=== PATIENT | male | born 1935 | race Caucasian/White ===

== ENCOUNTER → 2016-11-08 | Outpatient (CLI) | payer OTHER | LOC: SBRMNEURO 21:00 | PROVIDERS: ATTEND Psychiatry & Neurology Sleep Medicine | DX: G47.33 Obstructive sleep apnea (adult) (pediatric) (principal); G47.61 Periodic limb movement disorder ==

== ENCOUNTER 2016-11-29 16:52 | Inpatient (IN) | payer OTHER ==
--- NOTE | 2016-11-29 16:52 | EDPHY ---
H & P Time Seen by Provider: 11/29/16 16:52 HPI/ROS: CHIEF COMPLAINT: Weakness, and heart block HISTORY OF PRESENT ILLNESS: This 81-year-old man has a history of hypertension. He had a DVT 8 years ago. If he on losartan and Norvasc for his hypertension. This morning he felt a little bit weak at 7:00 a.m. when used is hand-held pulse oximetry and found that his pulse was in the 30s. He went to go skiing at [employer] and did 1 run with his instructor/guide but felt really fatigued even just walking across the parking lot with his skis. He went to the jet ski mechanic and was found to have bradycardia and was eventually transported to the emergency department by paramedics. On arrival he does not have any complaints. REVIEW OF SYSTEMS: Eye: no change in vision ENT: no sore throat Cardiac: no chest pain or syncope Pulmonary: no cough or SOB Abdomen: no vomiting, diarrhea, abdominal pain Musculoskeletal: no back pain Skin: no rash Neuro: no headache Constitutional: no fever : no urinary symptoms A comprehensive 10 point review of systems is otherwise negative aside from elements mentioned in the history of present illness. PAST MEDICAL HISTORY: DVT 8 years ago, hypertension, prostate cancer and hyperlipidemia. Prostatectomy and tonsillectomy. Social history: Former smoker General Appearance: Alert and conversant, cooperative. Eyes: No scleral icterus. ENT, Mouth: Normal mucous membranes. Respiratory: Normal respiratory effort, breath sounds equal, lungs are clear to auscultation. Cardiovascular: Regular rate and rhythm. Bradycardic Gastrointestinal: Abdomen is soft and non tender. Neurological: Alert and oriented x3. Normally conversant. Face symmetric, normal movement and sensation in all extremities. Skin: Warm and dry, no rashes. Musculoskeletal: No peripheral edema and no joint swelling. Psychiatric: Weakness, and heart block Emergency Department course/MDM: Patient is in second-degree heart block with 2-1 conduction. Admission with cardiology consultation for symptomatic bradycardia. He does not have ischemic symptoms. Troponin is ordered. Primary care is Bj Fernandez. [facility], telemetry. Dr. De La Cruz will consult. Constitutional: Initial Vital Signs Heart Rate 39 L 11/29/16 17:00 Respiratory Rate 18 11/29/16 17:00 Blood Pressure 169/61 H 11/29/16 17:00 O2 Sat (%) 93 11/29/16 17:00 O2 Delivery Mode Room Air Allergies/Adverse Reactions: No Known Allergies Allergy (Unverified 11/29/16 18:02) Home Medications: Medication Instructions Recorded Amlodipine Besylate 11/29/16 Aspirin 81mg (*) 11/29/16 Losartan Potassium 11/29/16 Ranitidine HCl 11/29/16 Medical Decision Making - Diagnostics EKG Interpretation: 12-lead EKG interpreted by me; official reading is in trace master. My interpretation is 2nd degree heart block rate 38 and late anterior RS transition. Imaging: Chest x-ray negative Differential Diagnosis: Differential for bradycardia considered including but not limited to heart block second-degree, heart block third-degree, sinus bradycardia, medication side effect Consult/Admit Bed Type: [facility] 4278, Dr. Hernandez [id number] - Data Points Laboratory Results: Laboratory Results 11/29/16 17:50 11/29/16 17:50 11/29/16 11/29/16 17:50 17:50 WBC 8.11 10^3/uL 10^3/uL (3.80-9.50) RBC 4.53 10^6/uL 10^6/uL (4.40-6.38) Hgb 15.2 g/dL g/dL (13.7-17.5) Hct 45.1 % % (40.0-51.0) MCV 99.6 fL fL (81.5-99.8) MCH 33.6 pg pg (27.9-34.1) MCHC 33.7 g/dL g/dL (32.4-36.7) RDW 14.6 % % (11.5-15.2) Plt Count 215 10^3/uL 10^3/uL (150-400) MPV 8.8 fL fL (8.7-11.7) Neut % (Auto) 62.1 % % (39.3-74.2) Lymph % (Auto) 19.5 % % (15.0-45.0) Power % (Auto) 13.8 % H % (4.5-13.0) Eos % (Auto) 3.3 % % (0.6-7.6) Baso % (Auto) 0.9 % % (0.3-1.7) Nucleat RBC Rel Count 0.0 % % (0.0-0.2) Absolute Neuts (auto) 5.04 10^3/uL 10^3/uL (1.70-6.50) Absolute Lymphs (auto) 1.58 10^3/uL 10^3/uL (1.00-3.00) Absolute Monos (auto) 1.12 10^3/uL H 10^3/uL (0.30-0.80) Absolute Eos (auto) 0.27 10^3/uL 10^3/uL (0.03-0.40) Absolute Basos (auto) 0.07 10^3/uL 10^3/uL (0.02-0.10) Absolute Nucleated RBC 0.00 10^3/uL 10^3/uL (0-0.01) Immature Gran % 0.4 % % (0.0-1.1) Immature Gran # 0.03 10^3/uL 10^3/uL (0.00-0.10) Sodium 145 mEq/L H mEq/L (134-144) Potassium 4.9 mEq/L mEq/L (3.5-5.2) Chloride 108 mEq/L mEq/L (97-110) Carbon Dioxide 26 mEq/l mEq/l (22-31) Anion Gap 11 mEq/L mEq/L (8-16) BUN 23 mg/dL mg/dL (7-23) Creatinine 0.9 mg/dL mg/dL (0.7-1.3) Estimated GFR > 60 Glucose 116 mg/dL H mg/dL (70-100) Calcium 9.6 mg/dL mg/dL (8.5-10.4) Troponin I < 0.012 ng/mL ng/mL (0-0.034) Departure - Departure Disposition: [facility] Inpatient Acute Clinical Impression: Second degree heart block Condition: Good
--- NOTE | 2016-11-29 17:07 | CPEKG ---
Heart Rate: 38 RR Interval: 1579 P-R Interval: 224 QRSD Interval: 136 QT Interval: 672 QTC Interval: 535 P [place]: 62 QRS [place]: 87 T Wave [place]: 69 EKG Severity - ABNORMAL ECG - EKG Impression: SECOND DEGREE AV BLOCK EKG Impression: RIGHT BUNDLE BRANCH BLOCK EKG Impression: CONSIDER ANTEROSEPTAL INFARCT Electronically Signed By: Ortiz Ott 29-Nov-2016 17:10:33
[2016-11-29 18:07] LABS: % IMMATURE GRANULYOCYTES 0.4 % (0.0-1.1); ABSOLUTE IMMATURE GRANULOCYTES 0.03 10^3/uL (0.00-0.10); ADD DIFF? NO; ADD MORPH? NO; ADD SCAN? NO; ATYPICAL LYMPHOCYTE FLAG 0 (0-99); FRAGMENT RBC FLAG 0 (0-99); HEMATOCRIT 45.1 % (40.0-51.0); HEMOGLOBIN 15.2 g/dL (13.7-17.5); LEFT SHIFT FLG 0 (0-99); LIPEMIA HEMOLYSIS FLAG 80 (0-99); MEAN CELL HEMOGLOBIN 33.6 pg (27.9-34.1); MEAN CELL HEMOGLOBIN CONCENTR. 33.7 g/dL (32.4-36.7); MEAN CELL VOLUME 99.6 fL (81.5-99.8); MEAN PLATELET VOLUME 8.8 fL (8.7-11.7); PLATELET CLUMPS FLAG 10 (0-99); PLATELET COUNT 215 10^3/uL (150-400); RED BLOOD CELL COUNT 4.53 10^6/uL (4.40-6.38); RED CELL DISTRIBUTION WIDTH 14.6 % (11.5-15.2)
[2016-11-29 18:31] LABS: ANION GAP 11 mEq/L (8-16); CALCIUM 9.6 mg/dL (8.5-10.4); CARBON DIOXIDE 26 mEq/l (22-31); CHLORIDE 108 mEq/L (97-110); CREATININE 0.9 mg/dL (0.7-1.3); GLOMERULAR FILTRATION RATE > 60; GLUCOSE 116 mg/dL (70-100); POTASSIUM 4.9 mEq/L (3.5-5.2); SODIUM 145 mEq/L (134-144)
[2016-11-29 18:42] LABS: TROPONIN I < 0.012 ng/mL (0-0.034)
[2016-11-29] MEDS ORDERED: ONDANSETRON 4 MG/2 ML VIAL IVP PRN (20:46)
[2016-11-29] MEDS ORDERED: ONDANSETRON DISINTEGRATING 4 MG TAB PO PRN (20:46)
--- NOTE | 2016-11-29 20:57 | PDGENHP ---
History and Physical - Chief Complaint weakness, fatigue - History of Present Illness 81 yo male with history of hypertension and GERD presents to ED with fatigue and bradycardia. He recently had his Amlodipine increased from 5 mg daily to 10 mg daily. Today, while skiing at [place], he did one run and felt very tired. He was wearing a heart rate monitor and noted his heart rate to be in the 30's. He was seen at a clinic in the [facility] and was sent down to [facility] ED for further evaluation. He denies CP or SOB. He denies HAMLIN or vision changes. His fatigue has been present for nearly 2 months. In the ED, his EKG showed a 2nd degree heart block. He is admitted for further evaluation. History Information - Allergies/Home Medication List Allergies/Adverse Reactions: No Known Allergies Allergy (Unverified 11/29/16 18:02) Home Medications: Amlodipine Besylate 10 mg PO DAILY 11/29/16 [Last Taken 11/29/16] Aspirin EC [Aspirin EC 81 mg (*)] 81 mg PO DAILY 11/29/16 [Last Taken 11/29/16] Cholecalciferol Vit D3 [Vitamin D3 (*)] 1,000 units PO DAILY 11/29/16 [Last Taken Unknown] Herbals/Supplements -Info Only 1 ea PO DAILY 11/29/16 [Last Taken Unknown] Losartan Potassium [Cozaar] 100 mg PO DAILY 11/29/16 [Last Taken Unknown] Ranitidine HCl 150 mg PO DAILY 11/29/16 [Last Taken 11/29/16] Zolpidem Tartrate 10 mg PO HS PRN 11/29/16 [Last Taken 11/01/16] I have personally reviewed and updated: family history, medical history, social history, surgical history - Past Medical History DVT, GERD, hypertension - Surgical History Additional surgical history: prostatectomy, tonsillectomy - Family History Positive for: non-pertinent - Social History Smoking Status: Former smoker Alcohol Use: Other (most days has 2-3 drinks. denies h/o withdrawal symptoms) Drug Use: None Additional social history: , lives up [facility]. He was in the [place]. Very active. Review of Systems ROS: 10pt was reviewed & negative except for what was stated in HPI & below Physical Exam Temp Pulse Resp BP Pulse Ox 36.8 C 45 L 18 150/113 H 93 11/29/16 17:10 11/29/16 18:00 11/29/16 18:00 11/29/16 18:00 11/29/16 18:00 Constitutional: no apparent distress Eyes: PERRL Ears, Nose, Mouth, Throat: moist mucous membranes Cardiovascular: no murmur, rub, or gallop, bradycardia Respiratory: no respiratory distress, clear to auscultation Gastrointestinal: normoactive bowel sounds, soft, non-tender abdomen Skin: warm Musculoskeletal: full muscle strength Neurologic: AAOx3 Psychiatric: interacting appropriately Lab Data & Imaging Review 11/29/16 17:50 11/29/16 17:50 WBC 8.11 10^3/uL (3.80-9.50) 11/29/16 17:50 RBC 4.53 10^6/uL (4.40-6.38) 11/29/16 17:50 Hgb 15.2 g/dL (13.7-17.5) 11/29/16 17:50 Hct 45.1 % (40.0-51.0) 11/29/16 17:50 MCV 99.6 fL (81.5-99.8) 11/29/16 17:50 MCH 33.6 pg (27.9-34.1) 11/29/16 17:50 MCHC 33.7 g/dL (32.4-36.7) 11/29/16 17:50 RDW 14.6 % (11.5-15.2) 11/29/16 17:50 Plt Count 215 10^3/uL (150-400) 11/29/16 17:50 MPV 8.8 fL (8.7-11.7) 11/29/16 17:50 Neut % (Auto) 62.1 % (39.3-74.2) 11/29/16 17:50 Lymph % (Auto) 19.5 % (15.0-45.0) 11/29/16 17:50 [place] % (Auto) 13.8 % (4.5-13.0) H 11/29/16 17:50 Eos % (Auto) 3.3 % (0.6-7.6) 11/29/16 17:50 Baso % (Auto) 0.9 % (0.3-1.7) 11/29/16 17:50 Nucleat RBC Rel Count 0.0 % (0.0-0.2) 11/29/16 17:50 Absolute Neuts (auto) 5.04 10^3/uL (1.70-6.50) 11/29/16 17:50 Absolute Lymphs (auto) 1.58 10^3/uL (1.00-3.00) 11/29/16 17:50 Absolute Monos (auto) 1.12 10^3/uL (0.30-0.80) H 11/29/16 17:50 Absolute Eos (auto) 0.27 10^3/uL (0.03-0.40) 11/29/16 17:50 Absolute Basos (auto) 0.07 10^3/uL (0.02-0.10) 11/29/16 17:50 Absolute Nucleated RBC 0.00 10^3/uL (0-0.01) 11/29/16 17:50 Immature Gran % 0.4 % (0.0-1.1) 11/29/16 17:50 Immature Gran # 0.03 10^3/uL (0.00-0.10) 11/29/16 17:50 Sodium 145 mEq/L (134-144) H 11/29/16 17:50 Potassium 4.9 mEq/L (3.5-5.2) 11/29/16 17:50 Chloride 108 mEq/L (97-110) 11/29/16 17:50 Carbon Dioxide 26 mEq/l (22-31) 11/29/16 17:50 Anion Gap 11 mEq/L (8-16) 11/29/16 17:50 BUN 23 mg/dL (7-23) 11/29/16 17:50 Creatinine 0.9 mg/dL (0.7-1.3) 11/29/16 17:50 Estimated GFR > 60 11/29/16 17:50 Glucose 116 mg/dL (70-100) H 11/29/16 17:50 Calcium 9.6 mg/dL (8.5-10.4) 11/29/16 17:50 Troponin I < 0.012 ng/mL (0-0.034) 11/29/16 17:50 Assessment & Plan Assessment: Second degree heart block (Acute) - EKG consistent with a 2:1 conduction versus Mobitz type 2. No CP, SOB or hypotension. Case was discussed with Cardiology. Norvasc will be held. He'll be monitored on telemetry. Pacer pads will be placed. If his heart block doesn't resolve in the absence of Norvasc, he may need a pacemaker. Cards to see in am. Will make NPO at midnight just in case it is decided to proceed with pacer. Hypertension - continue Losartan. As above, hold CCB due to bradycardia. GERD - cont PPI DVT PPLX - SCD's. Defer Lovenox in the event he requires intervention. Full code Dispo - Obs status. May require changing to inpatient should he require an additional day for
[2016-11-29] MEDS ORDERED: ZOLPIDEM TARTRATE 5 MG TAB PO PRN (22:01)
[2016-11-30] MEDS: LOSARTAN POTASSIUM 50 MG TAB PO SCH (09:52)
[2016-11-30] MEDS: FAMOTIDINE 20 MG TAB PO SCH (09:53)
[2016-11-30] MEDS: ASPIRIN EC 81 MG TAB PO SCH (09:55)
--- NOTE | 2016-11-30 11:03 | GCON ---
[f rep st] CONSULTATION CARDIAC CONSULTATION DATE OF CONSULTATION: 11/30/2016 CHIEF COMPLAINT: Increasing shortness of breath, lack of energy while skiing. EKG shows 2-1 heart block. HISTORY OF PRESENT ILLNESS: This is a very pleasant 81-year-old gentleman who is a long-time skier, who was [place] the mountains yesterday and just did not have his energy. He noted that his heart rate was low. He was seen at the clinic and noted in 2-1 heart block. He was transferred to [facility] where he remained in 2-1 heart block. He denies any palpitations or syncope. This is an acute event. He has been on chronic amlodipine and losartan for hypertension. No new changes or other issues were ongoing. Apparently 10 years ago he had a heart catheterization for unknown reasons which he reports to me as normal. He denies any ACS symptomatology, other issues or CHF. Overnight he has had normal sinus rhythm, some second-degree heart block and some conducted beats or PACs. His Norvasc was discontinued. Today he feels well. He is active. I had a long discussion with him about his findings. At this point, I recommend cardiac pacemaker because of his overall activity and the finding as noted above. He will be seen later today by Dr. Anders, the EP physician for his opinion as well. He has been made n.p.o. for tentative pacemaker placement today. LABORATORY DATA: His white count is 8, his hemoglobin is 15, his potassium 4.9 , creatinine 0.9. Troponins are normal. PAST MEDICAL HISTORY: GERD and hypertension. SOCIAL HISTORY: He lives in [place] and spends a lot of time in the [facility] and [place], very active skiing, nonsmoker. PHYSICAL EXAMINATION: VITAL SIGNS: Blood pressure is 138/56, heart rate in sinus rate in the 80s with 2-1 heart block. GENERAL: A middle-aged elderly male in no acute distress. Alert and oriented x3. MOUTH: Oropharynx is clear. NECK: Supple. BACK: CV is as above. LUNGS: Clear to auscultation. CARDIOVASCULAR: Regular rate and rhythm without murmur, gallop, or rub. ABDOMEN: Soft, nontender. Normal bowel sounds. No hepatosplenomegaly. MUSCULOSKELETAL: No sinus , clubbing, or edema. ASSESSMENT: Bradycardia, symptomatic with 2-1 second-degree heart block. I recommend cardiac permanent pacemaker. This was discussed with the patient. His Norvasc was discontinued. After hearing the procedure risks, benefits, and complication he agrees. I will have Dr. Boni Anders, my EP partner, also assess and advise with a 2nd opinion. He denies syncope or ACS symptomatology. His questions were answered. He does not appear to be actively infected. PLAN: Await Dr. Anders's 2nd opinion. Otherwise continue current treatment and hold Norvasc. After pacemaker could restart calcium channel or beta-mejia as needed as well. /[id number]/MODL MTDD
[2016-11-30] MEDS ORDERED: DIAZEPAM 5 MG TAB PO ONE (12:08)
[2016-11-30] MEDS ORDERED: BACITRACIN IRRIGATION/NS 50,000 UNITS/1,000 ML BTL IRR ONE (12:08)
[2016-11-30] MEDS ORDERED: diphenhydrAMINE 25 MG CAP PO ONE (12:08)
[2016-11-30] MEDS ORDERED: NS 1,000 ML IV SCH (12:15)
[2016-11-30 12:16] LABS: INR 1.08 (0.83-1.16); PROTIME(PATIENT) 13.9 SEC (12.0-15.0)
--- NOTE | 2016-11-30 13:08 | HOSPPROG ---
Hospitalist Progress Note Assessment/Plan: DIAGNOSIS: # symptomatic bradycardia # type 2 second degree heart block # highly active lifestyle # hx of prostate cancer appears cured PLANS: -for placement of pacemaker this afternoon w Dr Anders -I reviewed the procedure, potential complications, f/u monitoring, activity restictions post op, etc SUBJECTIVE: still fatigued, no chest pain or palpitations OBJECTIVE Vitals reviewed:HR in 40s, other vitals ok teletypesetter monitor: bradycardia w 2nd degr block Exam: alert oriented skin warm dry color ok resps not labored lungs clear BSs heart regular abd soft nondistended nontender, bowel sounds present limbs warm, no edema iv site ok Objective: Vital Signs Temp Pulse Resp BP Pulse Ox 36.6 C 37 L 16 129/60 H 92 11/30/16 12:21 11/30/16 12:21 11/30/16 12:21 11/30/16 12:21 11/30/16 12:21 PT 13.9 SEC (12.0-15.0) 11/30/16 11:55 INR 1.08 (0.83-1.16) 11/30/16 11:55 ICD10 Worksheet Patient Problems: Problems Problem Status Onset Second degree heart block Acute
[2016-11-30] MEDS ORDERED: ceFAZolin 2 GM in D5W 100 ML IV ONE (15:00)
[2016-11-30] MEDS ORDERED: MIDAZOLAM 2 MG/2 ML VIAL ONE (16:46)
[2016-11-30] MEDS ORDERED: fentaNYL 100 MCG/2 ML INJ ONE ×2 (16:46→18:48)
[2016-11-30] MEDS ORDERED: LIDOCAINE 1% 30 ML SDV ONE ×2 (16:46→18:57)
[2016-11-30] MEDS ORDERED: BUPIVACAINE 0.5% 30 ML SDV ONE ×2 (16:46→18:57)
[2016-11-30] MEDS ORDERED: IOPAMIDOL (ISOVUE-300) 50 ML VIAL IV ONE (18:38)
--- NOTE | 2016-11-30 20:16 | CPEKG ---
Heart Rate: 92 RR Interval: 652 QRSD Interval: 234 QT Interval: 383 QTC Interval: 474 QRS [place]: 87 T Wave [place]: -65 EKG Severity - ABNORMAL ECG - EKG Impression: AV PACED RHYTHM Electronically Signed By: Boni Anders 01-Dec-2016 09:03:17
[2016-12-01] MEDS: ACETAMINOPHEN 325 MG TAB PO PRN ×2 (04:46→09:01)
[2016-12-01 04:53] LABS: % IMMATURE GRANULYOCYTES 0.3 % (0.0-1.1); ABSOLUTE IMMATURE GRANULOCYTES 0.04 10^3/uL (0.00-0.10); ADD DIFF? NO; ADD MORPH? NO; ADD SCAN? NO; ATYPICAL LYMPHOCYTE FLAG 0 (0-99); FRAGMENT RBC FLAG 0 (0-99); HEMATOCRIT 43.5 % (40.0-51.0); HEMOGLOBIN 14.7 g/dL (13.7-17.5); LEFT SHIFT FLG 0 (0-99); LIPEMIA HEMOLYSIS FLAG 90 (0-99); MEAN CELL HEMOGLOBIN 33.6 pg (27.9-34.1); MEAN CELL HEMOGLOBIN CONCENTR. 33.8 g/dL (32.4-36.7); MEAN CELL VOLUME 99.3 fL (81.5-99.8); MEAN PLATELET VOLUME 8.7 fL (8.7-11.7); PLATELET CLUMPS FLAG 0 (0-99); PLATELET COUNT 188 10^3/uL (150-400); RED BLOOD CELL COUNT 4.38 10^6/uL (4.40-6.38); RED CELL DISTRIBUTION WIDTH 14.4 % (11.5-15.2)
[2016-12-01 05:13] LABS: ANION GAP 6 mEq/L (8-16); CALCIUM 8.9 mg/dL (8.5-10.4); CARBON DIOXIDE 26 mEq/l (22-31); CHLORIDE 107 mEq/L (97-110); CREATININE 0.9 mg/dL (0.7-1.3); GLOMERULAR FILTRATION RATE > 60; GLUCOSE 116 mg/dL (70-100); POTASSIUM 4.6 mEq/L (3.5-5.2); SODIUM 139 mEq/L (134-144)
[2016-12-01] MEDS: ASPIRIN EC 81 MG TAB PO SCH (09:01)
[2016-12-01] MEDS: FAMOTIDINE 20 MG TAB PO SCH (09:01)
[2016-12-01] MEDS: LOSARTAN POTASSIUM 50 MG TAB PO SCH (09:01)
--- NOTE | 2016-12-01 09:14 | CPEKG ---
Heart Rate: 81 RR Interval: 741 P-R Interval: 164 QRSD Interval: 172 QT Interval: 456 QTC Interval: 530 P [place]: 79 QRS [place]: -85 T Wave [place]: 90 EKG Severity - ABNORMAL ECG - EKG Impression: SINUS RHYTHM WITH VPACED RHYTHM Electronically Signed By: Boni Anders 01-Dec-2016 16:13:09
[2016-12-01 09:15] VITALS: BP 146/82; PULSE 85; RESP 22; TEMP 98.1; O2SAT 92
--- NOTE | 2016-12-01 09:17 | PDCARPN ---
Cardiology Progress Note Chief Complaint: Patient report tenderness at incision site Assessment/Plan: Assessment: 81-year-old male with history of HTN, noting to have a lack of energy. Noted to have slow heart rate, found to be in Mobitz type 2, 2-1 heart block. Transfer to [facility] on 11/30. Denies of any chest pain pressure shortness breath. [employer] PPM placed yesterday, dual chamber. Overnight telemetry showing patient AV paced, rare PVC. Patient denies of any chest pain or pressure. Does report pain at incisional site, mildly swollen, but no redness, swelling or drainage. [employer] rep here for device check, showing functioning within normal limits. Patient has undergone chest x-ray this morning, results are still pending. Vital signs have been stable. He has been walking unit without symptoms lightheadedness or near-syncope. Plan: Mobitz second-degree heart type 2: PPM implantation done last evening, device check showing functioning within normal limits. Patient reports no further episodes of fatigue or lightheadedness. Walking the unit without symptoms of near-syncope. Chest x-ray pending, if it looks fine (no signs of pneumothorax) , patient may be discharged home. I have gone over post pacemaker discharge instructions with the patient, he is scheduled for a one-week follow-up wound and device check in our office, and a [address] Anders. Dressing change done. HTN: Patient cont on home dose of losartan, his home dose of amlodipine was D/C on addmission due to HB. Now with PPM, BP up, restart on home dose of amlodipine. Patient and his have been told that if any problems or concerns come up post discharge, they are to call our office or return to the hospital. 12/01/16 09:17 Subjective: Denies any Cp, SOB, lightheadness, or palpitation Reviewed/Discussed With: family (Patient's ), hospitalist (Dr. Ace), other (Dr Anders) Objective: Vital Signs (8 Hrs) Temp Pulse Resp BP Pulse Ox 12/01/16 09:10 36.7 C 85 22 H 146/82 H 92 12/01/16 05:34 36.6 C 81 16 162/73 H 96 Intake/Output (24 Hrs) 11/30/16 12/01/16 12/02/16 05:59 05:59 05:59 Intake Total 100 Output Total 300 Balance -200 Intake: Oral (ml) 100 Output: Urine (ml) 300 Urinal 300 Other: Weight 88.45 kg Intake Quantity Yes Yes Sufficient Result Diagrams: 12/01/16 04:33 12/01/16 04:33 - Physical Exam Constitutional: WDWN, healthy appearing Ears, Nose, Mouth, Throat: moist mucous membranes Cardiovascular: regular rate and rhythm, no murmurs, no rubs, no gallops, pulses symmetric bilat, No carotid bruit Peripheral Pulses: 2+: carotid (R), carotid (L), dorsalis-pedis (R), dorsalis- pedis (L) Respiratory: clear to auscultate bilat, no crackles, no wheezes Gastrointestinal: normoactive bowel sounds, no tenderness Skin: no rashes, no edema, other (Pacemaker incision, left anterior chest, intact with Steri-Strips, mildly ecchymotic, no redness, swelling, or drainage. Dressing change done.) Neurologic: AAOx3, CN II-XII grossly intact Psychiatric: cooperative, interactive, following commands ICD10 Worksheet Patient Problems: Problems Problem Status Onset Second degree heart block Acute
--- NOTE | 2016-12-01 11:13 | PDDCSUM ---
Discharge Summary Discharge Summary: DISCHARGE SUMMARY NOTE DISCHARGE DIAGNOSES: # symptomatic bradycardia # Second-degree heart block type 2 # status post successful AV pacemaker CONSULTANTS: Dr. Boni Anders PROCEDURES: Placement of 2 lead pacemaker, functioning well and without complication HOSPITAL COURSE SUMMARY: This patient presented with fatigue and dyspnea and was found to be in second- degree type 2 heart block. This persisted. There were no AV node blocking agents that he was taking at the time. He was felt to be in need of pacemaker placement. This was performed by Dr. Boni Anders on the 30 of November. Follow-up chest x-rays have shown evidence of bleeding pneumothorax or other complications in the leads are in proper placement. The device is functioning well. At this point he is up walking well has no fevers eating well has no abnormal findings on examination. His pacemaker site looks good. His stable for discharge to home. He has received appropriate instructions both verbally and written regarding care of his pacemaker. PENDING TEST RESULTS: None MEDICATION CHANGES: None FOLLOW-UP PLAN: With Dr. Anders in 1 week Greater than 35 minutes bedside and care coordination time today
--- NOTE | 2016-12-02 15:09 | EPPROC ---
Electrophysiology Procedure Note: PROCEDURE PERFORMED: * Implantation of an A/V Pacemaker * Subclavian vein angiography * Fluoroscopy INDICATION: PROCEDURE NOTE: Patient presented to the cardiac catherization laboratory in a fasting, post absorptive state. Cardiac cleaner laboratory equipment nurse administered moderate sedation. The left infraclavicular area was prepped and draped in the usual sterile fashion. Lidocaine plus bupivacaine was used for local anesthesia. Left subclavian venography was performed by injection of iodinated contrast into the left antecubital vein. This was done to assure patency of the vein and also to assess for any anatomical aberrations. Using a combination of blunt and sharp dissection and electrocautery, the dissection was carried down to the prepectoral fascia. All bleeding was controlled with electrocautery. Fluoroscopy was utilized during the entire procedure for venous access and placement of the leads. Using the usual technique, left cephalic vein was accessed but it was a small vessel and hence venogram was performed and subclavian access was obtained and a glidewire was placed. Through this initially a 9F and later a 7F sheath was passed. Placement of the guidewires into the venous system was confirmed by low -pressure blood return and also by visualizing the guidewires advancing into the inferior vena cava. A purse string suture was applied around the guidewires. An active fixation ventricular lead was advanced into the right ventricular apex and screwed in place. An active fixation atrial lead was advanced into the right atrial appendage and screwed in place. The peel away sheaths were removed. Pacing thresholds, sensing parameters and lead impedances were measured. There was no diaphragmatic stimulation at maximum output. The leads were sutured to the prepectoral fascia with 3 nonabsorbable sutures each. The pocket was created and it was flushed using antibiotic solution. It was inspected for any bleeding. The leads were attached to the pacemaker securely. The pacemaker was inserted into the pocket and secured in place with a nonabsorbable suture. Fluoroscopy was performed in M[place]ONNELL and ITALIAN planes to verify right-sided placement of the leads. Also fluoroscopy of the pacemaker pocket was performed. The pacemaker pocket was closed in 3 layers with absorbable vicryl sutures. Steristrips were placed. Appropriate dressing was applied. The patient left the cardiac catheterization laboratory in stable condition. Jermain Pacing Parameters * Pacing mode: DDDR * Lower rate: 60 * Upper tracking rate: 130 * Upper sensor rate: 130 Patient Problems: Problems Problem Status Onset Second degree heart block Acute
== END 2016-12-01 11:53 | disposition home or self-care (01) | DRG 244 ==
LOC: EDUNIT# → INTOOBSV 18:34 → F2W 21:58 → OBSVTOIN 11-30 18:05
PROVIDERS: ADMIT Hospitalist; ATTEND Internal Medicine
PROC: 02HK3JZ Insertion of Pacemaker Lead into Right Ventricle, Percutaneous Approach (ICD-10-PCS; principal; 2016-11-30)
PROC: 0JH606Z Insertion of Pacemaker, Dual Chamber into Chest Subcutaneous Tissue and Fascia, Open Approach (ICD-10-PCS; principal; 2016-11-30)
PROC: 02H63JZ Insertion of Pacemaker Lead into Right Atrium, Percutaneous Approach (ICD-10-PCS; principal; 2016-11-30)
DX: I44.1 Atrioventricular block, second degree (principal); I10 Essential (primary) hypertension; K21.9 Gastro-esophageal reflux disease without esophagitis; E78.5 Hyperlipidemia, unspecified; Z85.46 Personal history of malignant neoplasm of prostate; Z86.718 Personal history of other venous thrombosis and embolism
CPT/HCPCS: C1769; C1785; C1898; G0378; J0690; J2250; J3010; Q9967

== ENCOUNTER → 2017-09-20 | Outpatient (CLI) | payer OTHER | LOC: BMCIMAGING 14:55 | PROVIDERS: ATTEND Internal Medicine | DX: J44.9 Chronic obstructive pulmonary disease, unspecified (principal) ==

== ENCOUNTER → 2018-03-28 | Outpatient (CLI) | payer OTHER | LOC: BHFA 09:00 | PROVIDERS: ATTEND Internal Medicine Cardiovascular Disease | DX: I25.10 Atherosclerotic heart disease of native coronary artery without angina pectoris (principal) | CPT/HCPCS: 78452; 93017; A9500; J2785 ==

== ENCOUNTER 2018-03-30 07:30 | Day surgery (SDC) | payer OTHER ==
[2018-03-30] MEDS ORDERED: ASPIRIN EC 325 MG TAB PO ONE (07:33)
[2018-03-30] MEDS ORDERED: diphenhydrAMINE 25 MG CAP PO ONE (07:33)
[2018-03-30] MEDS ORDERED: FAMOTIDINE 20 MG TAB PO ONE (07:33)
[2018-03-30] MEDS ORDERED: NS 1,000 ML IV ONE (07:33)
[2018-03-30] MEDS ORDERED: DIAZEPAM 5 MG TAB PO ONE (07:33)
[2018-03-30 08:10] LABS: PLATELET COUNT 202 10^3/uL (150-400)
--- NOTE | 2018-03-30 08:11 | CPEKG ---
Heart Rate: 68 RR Interval: 882 QRSD Interval: 166 QT Interval: 468 QTC Interval: 498 QRS [place]: -82 T Wave [place]: 92 EKG Severity - ABNORMAL ECG - EKG Impression: AFIB/FLUTTER AND VENTRICULAR-PACED RHYTHM EKG Impression: ATRIAL FIBRILLATION IS NEW IN COMPARISON TO PRIOR ECG FROM NOV 2016 Electronically Signed By: Chriss Vieira 30-Mar-2018 17:15:12
[2018-03-30 08:19] LABS: PROTIME(PATIENT) 13.4 SEC (12.0-15.0)
[2018-03-30] MEDS ORDERED: LIDOCAINE 1% 300 MG/30 ML SDV ONE (09:30)
[2018-03-30] MEDS ORDERED: IOPAMIDOL (ISOVUE-370) 150 ML BTL IV ONE (09:31)
[2018-03-30] MEDS ORDERED: VERAPAMIL 5 MG/2 ML VIAL ONE (09:31)
[2018-03-30] MEDS ORDERED: MIDAZOLAM 2 MG/2 ML VIAL ONE ×2 (09:31→11:04)
[2018-03-30] MEDS ORDERED: fentaNYL 100 MCG/2 ML INJ ONE (09:31)
[2018-03-30] MEDS ORDERED: HEPARIN 10,000 UNIT/10 ML MDV (1,000 UNIT/ML) ONE (09:31)
--- NOTE | 2018-03-30 09:46 | PDPROPOC ---
Sedation Plan of Care Sedation Plan of Care: vital signs stable, mental status noted, patient educated of risks, benefits, alternatives, patient can tolerate sedation ASA Classification: ASA 3 Planned drugs: fentanyl, midazolam Mallampati Score: Class 2 Mallampati Reference Image: Patient passed 3-3-2 rule?: Yes
--- NOTE | 2018-03-30 09:59 | PDGENHP ---
History & Physical History of Present Illness: 82 year old with a fib, shortness of breath at NYHA class III has chronic DVT and PE. He has extensive atherosclerosis. Nuclear is considered high risk because of reduced EF and large zone of questionable infarct given RV pacing. Pertinent Past, Social, Family History: Please see H and P patient is a [place] resident but also has a residence in [place]. Much of his work up was done at [facility] in [place]. Relevant Physical Exam: regular rhythm a fib underlying simona's test normal on right. chronically anticoagulated for DVT and PE. skin warm and dry. alert oriented X 3. Cardiorespiratory Assessment: See the above notes...
--- NOTE | 2018-03-30 11:06 | PDDXCAT ---
Diagnostic Cath Note - . Date: 03/30/18 Civil Engineer Helper: Gabriela Indication: High-risk criteria on noninvasive testing (choose option below) High-risk criteria on non-invasive testing: stress-induced moderate-size multiple perfusion defects - Procedure Access: right wrist Procedure: left heart catheterization, coronary angiography, left ventriculogram - Materials Left Heart Cath size: 5F Left Heart Cath materials: standard multipack (JL4, JR4, pigtail), other (AL1) - Findings-Left Heart Catheterization LM: The LM is 5mm in size and bifurcates into an LAD and circumflex system. It is free of flow limiting disease, dissection, or thrombus. There is ostial narrowing of the 2.75 mm vessel of 30%. Significant calcification and luminal irregularity consistent with atherosclerosis. LAD: The LAD 2.75 mm in size. There is ostial narrowing of 30%. Significant calcification and luminal irregularity consistent with atherosclerosis is present. There is complex atheroma involving the LAD diagonal bifurcation with a 40% stenosis of the diagonal vessel. After the diagonal takeoff the LAD is diffusely diseased and relatively small. No flow limiting obstruction is identified and there is no narrowing that would benefit from stenting. LCX: The LCX is 3 mm in size with an ostial 30% narrowing. It gives rise to two small proximal obtuse marginal branches with two larger PLV branches distally. Both of which have 40% luminal narrowing. No flow limiting obstruction, dissection, or thrombus is noted. RCA: The RCA is 2.5 mm in size. There are 2 eccentric lesions in the RCA proper. A 30% proximal to the RV branch takeoff and a 40% lesion just distal to that same branch. ALEK III flow. EDP: 16mmHg LVEF: The EF is 40% Wall motion: The EF is 40% with distal inferior wall and anterolateral wall hypokinesis. The basal anterior wall is hypercontractile. There appears to be paradoxical motion consistent with chronic RV pacing. There is evidence of mild MR on pressurized injection. The aortic valve is calcific and there was a 15mm gradient upon pullback across the aortic valve consistent with mild aortic stenosis. No neelima aneurysm or dissection was identified. Complications: NONE. Estimated blood loss: <50ml Closure method: TR Band Assessment: 1. 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 No flow limiting obstruction that would appear to benefit from revascularization. 2. Mild aortic stenosis. 3. 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 The patient could be considered for an upgrade to a biventricular pacemaker. On angiography the coronary sinus was noted to be large and robust. Plan: The patient has non-flow limiting coronary disease that should be treated medically to achieve a non-HDL Cholesterol of less than 100 mg/dL and anti platelet therapy with ASA is also recommended specifically a dose of 162 mg per day. His BP also needs to be controlled for a goal systolic pressure of less than 130 mmHg. Annual echocardiogram every 2-3 years to follow the severity of his aortic stenosis. I would like the patient to follow up with Dr. Anders to consider biventricular pacer upgrade due to decreased EF. Intervention: NONE. Patient Problems: Problems Problem Status Onset Second degree heart block Acute
[2018-03-30] MEDS ORDERED: ONDANSETRON 4 MG/2 ML VIAL IVP PRN (11:34)
[2018-03-30] MEDS ORDERED: NITROGLYCERIN 0.4 MG BTL SL PRN (11:34)
[2018-03-30] MEDS ORDERED: ATROPINE SULFATE 1 MG/10 ML SYR IVP PRN (11:34)
[2018-03-30] MEDS ORDERED: OXYCODONE/APAP 5/325 TAB PO PRN (11:34)
[2018-03-30] MEDS ORDERED: HYDROCODONE/APAP 5/325 TAB PO PRN (11:34)
--- NOTE | 2018-03-30 16:05 | CPEKG ---
Heart Rate: 83 RR Interval: 723 P-R Interval: 164 QRSD Interval: 76 QT Interval: 408 QTC Interval: 480 P [place]: 46 QRS [place]: 14 T Wave [place]: 16 EKG Severity - BORDERLINE ECG - EKG Impression: SINUS RHYTHM EKG Impression: BORDERLINE PROLONGED QT INTERVAL EKG Impression: SINUS RHYTHM IS NEW IN COMPARISON TO PRIOR ECG WITH ATRIAL FIB AND VENTRICULAR EKG Impression: PACING Electronically Signed By: Chriss Vieira 30-Mar-2018 17:15:48
== END 2018-03-30 15:50 | disposition home or self-care (01) ==
LOC: FCATH 07:30
PROVIDERS: ATTEND Internal Medicine Cardiovascular Disease
PROC: B2111ZZ Fluoroscopy of Multiple Coronary Arteries using Low Osmolar Contrast (ICD-10-PCS; principal; 2018-03-30)
PROC: 4A023N7 Measurement of Cardiac Sampling and Pressure, Left Heart, Percutaneous Approach (ICD-10-PCS; principal; 2018-03-30)
PROC: B2151ZZ Fluoroscopy of Left Heart using Low Osmolar Contrast (ICD-10-PCS; principal; 2018-03-30)
DX: I25.10 Atherosclerotic heart disease of native coronary artery without angina pectoris (principal); I48.91 Unspecified atrial fibrillation; I42.9 Cardiomyopathy, unspecified; J44.9 Chronic obstructive pulmonary disease, unspecified; I10 Essential (primary) hypertension; K21.9 Gastro-esophageal reflux disease without esophagitis; G47.33 Obstructive sleep apnea (adult) (pediatric); Z86.711 Personal history of pulmonary embolism; Z86.718 Personal history of other venous thrombosis and embolism; Z79.01 Long term (current) use of anticoagulants; Z95.0 Presence of cardiac pacemaker; Z85.46 Personal history of malignant neoplasm of prostate
CPT/HCPCS: 93005; 93458; C1769; J1644; J2250; J3010; Q9967

== ENCOUNTER 2018-04-05 06:58 | Day surgery (SDC) | payer OTHER ==
[2018-04-05] MEDS ORDERED: BENZOCAINE UNIT DOSE SPRAY HURRICAINE MM ONE (06:59)
[2018-04-05] MEDS ORDERED: ATROPINE SULFATE 1 MG/10 ML SYR IVP ONE (06:59)
[2018-04-05] MEDS ORDERED: NS 500 ML IV ONE (06:59)
[2018-04-05] MEDS ORDERED: fentaNYL 100 MCG/2 ML INJ IVP ONE (06:59)
[2018-04-05] MEDS ORDERED: MIDAZOLAM 2 MG/2 ML VIAL IVP ONE (06:59)
--- NOTE | 2018-04-05 07:14 | CPEKG ---
Heart Rate: 70 RR Interval: 857 QRSD Interval: 166 QT Interval: 464 QTC Interval: 501 QRS [place]: -80 T Wave [place]: 95 EKG Severity - ABNORMAL ECG - EKG Impression: AFIB/FLUTTER AND VENTRICULAR-PACED RHYTHM Electronically Signed By: Ross Odonnell 05-Apr-2018 09:23:15
[2018-04-05 07:36] LABS: INR 1.17 (0.83-1.16); PROTIME(PATIENT) 15.1 SEC (12.0-15.0)
--- NOTE | 2018-04-05 08:07 | PDANEPAE ---
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) ANE Patient History - Allergies Allergies/Adverse Reactions: No Known Allergies Allergy (Verified 04/04/18 10:34) - Home Medications Home medications: home medication list seen and reviewed Home Medications: Cholecalciferol Vit D3 [Vitamin D3 (*)] 1,000 units PO DAILY 11/29/16 [Last Taken 03/30/18 06:00] Herbals/Supplements -Info Only 1 ea PO DAILY 11/29/16 [Last Taken 03/30/18 06:00 ] Losartan Potassium [Cozaar] 100 mg PO DAILY 11/29/16 [Last Taken 03/30/18 06:00] Ranitidine HCl 150 mg PO DAILY 11/29/16 [Last Taken 03/30/18 06:00] Zolpidem Tartrate 10 mg PO HS PRN 11/29/16 [Last Taken 03/29/18 21:00] amLODIPine BESYLATE [Amlodipine Besylate] 10 mg PO DAILY 11/29/16 [Last Taken 06:00] Apixaban [Eliquis] 5 mg PO BID 03/30/18 [Last Taken 03/29/18 08:00] Acetaminophen [Tylenol 325mg (*)] 650 mg PO Q4H PRN 04/04/18 [Last Taken Unknown ] Loratadine [Claritin] 10 mg PO DAILY PRN 04/04/18 [Last Taken Unknown] Rosuvastatin Calcium [Crestor 40mg (*)] 40 mg PO DAILY 04/04/18 [Last Taken Unknown] - Anes Hx Anes Hx: no prior problems - Smoking Hx Smoking Status: Former smoker ANE Labs/Vital Signs - Labs Result Diagrams: 04/05/18 07:10 - Vital Signs Height: 182.88 cm Weight: 87.09 kg ANE Physical Exam - Airway Mallampati Score: Class 2 Mouth exam: normal dental/mouth exam - Pulmonary Pulmonary: no respiratory distress - Cardiovascular Cardiovascular: regular rate and rhythym - ASA Status ASA Status: III ANE Anesthesia Plan Anesthesia Plan: MAC
[2018-04-05] MEDS ORDERED: LIDOCAINE 2% 100 MG/5 ML SYR ONE (08:35)
[2018-04-05] MEDS ORDERED: PROPOFOL 200 MG/20 ML VIAL ONE (08:35)
--- NOTE | 2018-04-05 08:48 | PDHPUP ---
History & Physical Update H&P update statement: This history and physical update is based on an assessment of the patient which was completed after admission or registration (within 24 hours), but prior to the surgery/procedure. H&P update: H&P reviewed & patient examined, no change in patient's condition since H&P completed
--- NOTE | 2018-04-05 08:49 | PDGENHP ---
History & Physical Chief Complaint: fatigue History of Present Illness: PPM, AF, CMP, EF 30% Pertinent Past, Social, Family History: Unchanged and reviewed Relevant Physical Exam: Normal Cardiorespiratory Assessment: S1S2 irregular no s3
[2018-04-05] MEDS ORDERED: NALOXONE HCL 0.4 MG/ML INJ IVP PRN (09:18)
--- NOTE | 2018-04-05 09:18 | POSTANESTH ---
Post Anesthetic Evaluation Cardiovascular Status: Similar to Pre-Op Cond Respiratory Status: Similar to Pre-op Cond. Level of Consciousness/Mental Status: Alert and Oriented Pain Control: Adequate, Prn Tx Ordered Nausea/Vomiting Control: Adequate, Prn Tx Ordered Complications Possibly Related to Anesthesia: None Noted
--- NOTE | 2018-04-05 09:21 | CPEKG ---
Heart Rate: 60 RR Interval: 1000 P-R Interval: 408 QRSD Interval: 160 QT Interval: 468 QTC Interval: 468 P [place]: -33 QRS [place]: -77 T Wave [place]: 99 EKG Severity - ABNORMAL ECG - EKG Impression: VENTRICULAR-PACED RHYTHM Electronically Signed By: Ross Odonnell 05-Apr-2018 09:23:05
--- NOTE | 2018-04-06 16:31 | PDCARD ---
Cardioversion Procedure Procedure: electrical cardioversion Indications: atrial fibrillation Consent: signed and in chart Anticoagulation: eliquis Procedural Details: Pads were placed in anterior-posterior position. Synchronized cardioversion attempt #1: 200J Results: normal sinus rhythm Conclusions: successful cardioversion Patient Problems: Problems Problem Status Onset Second degree heart block Acute
== END 2018-04-05 10:17 | disposition home or self-care (01) ==
LOC: FCATH 06:58
PROVIDERS: ATTEND Internal Medicine Cardiovascular Disease
PROC: 5A2204Z Restoration of Cardiac Rhythm, Single (ICD-10-PCS; principal; 2018-04-05)
PROC: B245ZZ4 Ultrasonography of Left Heart, Transesophageal (ICD-10-PCS; principal; 2018-04-05)
DX: I48.91 Unspecified atrial fibrillation (principal); I82.5Z9 Chronic embolism and thrombosis of unspecified deep veins of unspecified distal lower extremity; Z86.711 Personal history of pulmonary embolism; Z95.0 Presence of cardiac pacemaker; J44.9 Chronic obstructive pulmonary disease, unspecified; K21.9 Gastro-esophageal reflux disease without esophagitis; I10 Essential (primary) hypertension; G47.33 Obstructive sleep apnea (adult) (pediatric); Z85.46 Personal history of malignant neoplasm of prostate
CPT/HCPCS: J0461; J2001; J2704

== ENCOUNTER → 2018-04-20 | Outpatient (CLI) | payer OTHER | LOC: BHFA 15:00 | PROVIDERS: ATTEND Internal Medicine Cardiovascular Disease | DX: R06.09 Other forms of dyspnea (principal); R53.83 Other fatigue ==